=== PATIENT | female | born 1960 | race Caucasian/White ===

== ENCOUNTER 2022-10-19 11:01 | Outpatient (REF) | payer OTHER, SELFPAY ==
[2022-10-19 15:59] LABS: Alanine Aminotransferase 26 U/L (0-31); Albumin Level 4.1 g/dL (3.5-5.0); Alkaline Phosphatase 79 U/L (39-117); Anion Gap 13 (12-20); Aspartate Amino Transferase 22 U/L (5-31); Bilirubin Total 0.5 mg/dL (0.0-1.0); Blood Urea Nitrogen 10 mg/dL (9-16); Carbon Dioxide 26 mmol/L (22-29); Chloride 106 mmol/L (96-108); Cholesterol 212 mg/dL; Estimated Glomerular Filt Rate > 60; Glucose Random 85 mg/dL (60-115); HDL Cholesterol 41 mg/dL; LDL Cholesterol Calculated 150 mg/dl; Potassium 4.2 mmol/L (3.3-5.1); Sodium 141 mmol/L (135-145); Total Protein 7.5 g/dL (6.5-8.0); Triglycerides 106 mg/dL
[2022-10-19 16:50] LABS: Creatinine Urine 25.17 mg/dL; Microalbumin Urine < 5.0 mg/L
== END 2022-10-19 11:02 | disposition home or self-care (01) ==
LOC: HO.CHCLDS 11:01
PROVIDERS: Visit Provider Internal Medicine
DX: E11.9 Type 2 diabetes mellitus without complications (principal)
CPT/HCPCS: 36415; 80053; 80061; 82043

== ENCOUNTER 2022-11-10 08:44 | Outpatient (AMB) | payer OTHER, SELFPAY ==
--- NOTE | 2022-11-10 08:45 | MHC.OFFWIV ---
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 While walking her dog today she was attacked by a cat. The cat scratched her left leg. She does not know the cat belongs to. PFSH Social History Patient Tobacco Use Status: Never used Tobacco Physical Exam Vital Signs: Last Vital Signs Temp 98.5 F 11/10/22 08:46 Pulse 72 11/10/22 08:46 BP 138/76 11/10/22 08:46 Pulse Ox 98 11/10/22 08:46 Oxygen Delivery Method Room Air 11/10/22 08:46 BMI result Body Mass Index 34.7 Extrem Other: Left leg: Scratch echavarria over her left leg. No visible bleeding sites. Assessment & Plan Assessment & Plan (1) Cat scratch: Code(s): W55.03XA - Scratched by cat, initial encounter Plan: Cipro started. Patient is up-to-date on her tetanus. Coding Level of Care Code Est Pt Level 3 (74193) Diagnoses Cat scratch W55.03XA
[2022-11-10 08:46] VITALS: BP 138/76; PULSE 72; TEMP 36.9; O2SAT 98; BMI 34.7
== END 2022-11-10 09:23 | disposition home or self-care (01) ==
PROVIDERS: Visit Provider Internal Medicine
DX: S80.812A Abrasion, left lower leg, initial encounter (principal); W55.03XA Scratched by cat, initial encounter
CPT/HCPCS: 99213

== ENCOUNTER 2023-03-30 08:57 | Outpatient (REF) | payer OTHER, SELFPAY ==
[2023-03-30 15:15] LABS: Alanine Aminotransferase 28 U/L (0-31); Albumin Level 4.2 g/dL (3.5-5.0); Alkaline Phosphatase 86 U/L (39-117); Anion Gap 13 (12-20); Aspartate Amino Transferase 23 U/L (5-31); Bilirubin Total 0.6 mg/dL (0.0-1.0); Blood Urea Nitrogen 13 mg/dL (9-16); Calcium 9.5 mg/dL (8.4-10.2); Carbon Dioxide 27 mmol/L (22-29); Chloride 105 mmol/L (96-108); Cholesterol 150 mg/dL (<200); Estimated Glomerular Filt Rate > 60; Glucose Random 89 mg/dL (60-115); HDL Cholesterol 47 mg/dL (>40); LDL Cholesterol Calculated 86 mg/dL (<100); Potassium 4.2 mmol/L (3.3-5.1); Sodium 141 mmol/L (135-145); Total Protein 7.5 g/dL (6.5-8.0); Triglycerides 88 mg/dL (<150)
== END 2023-03-30 08:58 | disposition home or self-care (01) ==
LOC: HO.CHCLDS 08:57
PROVIDERS: Visit Provider Internal Medicine
DX: E78.2 Mixed hyperlipidemia (principal)
CPT/HCPCS: 36415; 80053; 80061

== ENCOUNTER 2023-08-09 09:13 | Outpatient (REF) | payer OTHER, SELFPAY ==
[2023-08-09 15:02] LABS: Estimated Average Glucose 137 mg/dL; Hemoglobin A1c % 6.4 % (<6.0)
[2023-08-09 15:03] LABS: Alanine Aminotransferase 16 U/L (0-31); Albumin Level 4.2 g/dL (3.5-5.0); Alkaline Phosphatase 67 U/L (39-117); Anion Gap 16 (12-20); Aspartate Amino Transferase 22 U/L (5-31); Bilirubin Total 0.5 mg/dL (0.0-1.0); Blood Urea Nitrogen 12 mg/dL (9-16); Calcium 9.8 mg/dL (8.4-10.2); Carbon Dioxide 26 mmol/L (22-29); Chloride 106 mmol/L (96-108); Cholesterol 247 mg/dL (<200); Estimated Glomerular Filt Rate > 60; Glucose Random 92 mg/dL (60-115); HDL Cholesterol 51 mg/dL (>40); LDL Cholesterol Calculated 174 mg/dL (<100); Potassium 4.6 mmol/L (3.3-5.1); Sodium 143 mmol/L (135-145); Total Protein 7.8 g/dL (6.5-8.0); Triglycerides 114 mg/dL (<150)
== END 2023-08-09 09:14 | disposition home or self-care (01) ==
LOC: HO.CHCLDS 09:13
PROVIDERS: Visit Provider Internal Medicine
DX: E11.9 Type 2 diabetes mellitus without complications (principal); E78.2 Mixed hyperlipidemia
CPT/HCPCS: 36415; 80053; 80061; 83036

== ENCOUNTER 2024-01-02 09:42 | Outpatient (REF) | payer OTHER, SELFPAY ==
[2024-01-02 15:01] LABS: Alanine Aminotransferase 17 U/L (0-31); Albumin Level 4.3 g/dL (3.5-5.0); Alkaline Phosphatase 66 U/L (39-117); Anion Gap 12 (12-20); Aspartate Amino Transferase 25 U/L (5-31); Bilirubin Total 0.5 mg/dL (0.0-1.0); Blood Urea Nitrogen 11 mg/dL (9-16); Calcium 9.7 mg/dL (8.4-10.2); Carbon Dioxide 27 mmol/L (22-29); Chloride 106 mmol/L (96-108); Cholesterol 273 mg/dL (<200); Estimated Glomerular Filt Rate > 60; Glucose Random 91 mg/dL (60-115); HDL Cholesterol 54 mg/dL (>40); LDL Cholesterol Calculated 198 mg/dL (<100); Potassium 4.4 mmol/L (3.3-5.1); Sodium 141 mmol/L (135-145); Total Protein 7.6 g/dL (6.5-8.0); Triglycerides 106 mg/dL (<150)
== END 2024-01-02 09:43 | disposition home or self-care (01) ==
LOC: HO.CHCLDS 09:42
PROVIDERS: Visit Provider Internal Medicine
DX: E78.2 Mixed hyperlipidemia (principal)
CPT/HCPCS: 36415; 80053; 80061

== ENCOUNTER 2024-10-14 10:04 | Outpatient (REF) | payer OTHER, SELFPAY ==
--- OUTSIDE RECORDS SUMMARY | 2024-10-14 10:38 | XMS_ITS | Encounter Summary ---
Author Organization [employer] Address [address] [facility] [address] [place] [address] Care Team Providers Care Dry Can Tender Name Role Phone Gerard Dsouza MD Primary Care Prov ider Reason for Visit * Reason Comments Med Refill Encounter Details Date Type Department Care Team ([facility] st Contact Info) Description 08/28/2023 Refill C [facility] [address] [place], [place] [phone] Gerard Dsouza MD [address] [place], [place] [phone] Social History Tobacco Use Types Packs/Day Years Used Date Smoking Tobacco: Never Smokeless Tobacco: Never Depression Answer Date Recorded Patient Health Questionnaire-9 Score 0 07/20/2022 Housing Stability Answer Date Recorded What is your housing situation today? I have andra hartley 12/27/[address] you li ve. Do you have problems with any of the following? None of the above 12/27/2022 Food Insecurity Answer Date Recorded Within the past 12 months, y ou worried that your food would run out before you got money to buy more: Never True 12/27/2022 Within the past 12 months,th e food you bought just didn't last and you didn't have enough money to get more: Never True Transportation Answer Date Recorded In the past 12 months, has l ack of transportation kept you from medical appts, meetings, work or from getting things needed for daily living? No 12/27/2022 Utilities Answer Date Recorded In the past 12 months, has t he electric, gas, oil or water company threatened to shut off services in your home? No 12/27/2022 Depression Answer Date Recorded Patient Health Questionnaire-2 Score 0 07/20/2022 Comments Unknown Sex and Gender Information Value Date Recorded Sex Assigned at Female 01/09/2022 10:20 AM EDT Legal Sex Female 10:20 AM EDT Gender Identity Female 07/20/2022 10:00 AM EDT Sexual Orientation Straight 07/20/2022 10 :00 AM EDT documented as of this encounter Plan of Treatment Not on file documented as of this encounter Visit Diagnoses Not on filedocumented in this encounter Additional Health Concerns Assessment Noted Time PHQ-9 Depression Total Score: 0 07/21/19 23 10:29 AM EDT documented as of this encounter Care Teams Dry Can Tender Relationship Specialty Start Date End Date Gerard Dsouza MD [address] [place] [id number] PCP - General Internal Medicine 07/21/19 documented as of this encounter
[2024-10-14 14:19] LABS: MANUAL DIFF FLAG NO
[2024-10-14 14:28] LABS: Hematocrit 42.8 % (37.0-47.0); Hemoglobin 13.7 g/dl (12.0-16.0); Imm Gran Abs Auto 0.02 X10*3/uL (0.00-0.03); Imm Gran Pct Auto 0.3 % (0.0-0.4); Lymphocytes Absolute Auto 1.8 X10*3/uL (1.2-4.9); Mean Corpuscular HGB Conc 32.0 g/dl (31.0-35.0); Mean Corpuscular Hemoglobin 28.5 pg (27.0-33.0); Mean Corpuscular Volume 89.2 fL (80.0-98.0); NRBC Abs Auto 0.000 X10*3/uL (0.0-0.012); NRBC Pct Auto 0.0 /100WBC (0.0-0.2); Platelet Count 323 X10*3/uL (160-400); Red Blood Count 4.80 X10*6/uL (4.20-5.50); White Blood Count 6.6 X10*3/uL (4.8-10.8)
[2024-10-14 14:47] LABS: Microalbum/Creatinine Ratio Ur 8.6 ug/mg cr (<30)
[2024-10-14 15:04] LABS: Alanine Aminotransferase 17 U/L (0-31); Albumin Level 4.5 g/dL (3.5-5.0); Alkaline Phosphatase 63 U/L (39-117); Anion Gap 12 (12-20); Aspartate Amino Transferase 27 U/L (5-31); Blood Urea Nitrogen 11 mg/dL (9-16); Calcium 9.0 mg/dL (8.4-10.2); Carbon Dioxide 27 mmol/L (22-29); Chloride 107 mmol/L (96-108); Cholesterol 258 mg/dL (<200); Estimated Glomerular Filt Rate 56; HDL Cholesterol 49 mg/dL (>40); Potassium 4.2 mmol/L (3.3-5.1); Sodium 142 mmol/L (135-145); Total Protein 7.4 g/dL (6.5-8.0); Triglycerides 110 mg/dL (<150)
== END 2024-10-14 10:05 | disposition home or self-care (01) ==
LOC: HO.CHCLDS 10:04
PROVIDERS: Visit Provider Internal Medicine
DX: E11.9 Type 2 diabetes mellitus without complications (principal)
CPT/HCPCS: 36415; 80053; 80061; 82043; 82570; 84443; 85025

== ENCOUNTER 2025-01-16 08:55 | Outpatient (REF) | payer OTHER, SELFPAY ==
--- OUTSIDE RECORDS SUMMARY | 2025-01-12 09:00 | XMS_ITS | Encounter Summary ---
Author Organization [employer] Address [address] [facility] 7 [place] [address] Care Team Providers Care Sewer Line Repairer Name Role Phone Gerard Dsouza MD Primary Care Prov ider Encounter Details Date Type Department Care Team ([facility] st Contact Info) Description 01/12/2025 9:00 AM EST Telemedicine [facility] [address] [place], [place] [phone] Gerard Dsouza MD [address] [place] [address] Type 2 diabetes mellitus without complication, without long-term current use of insulin (HCC) (Primary Dx); Primary hypertension Social History Tobacco Use Types Packs/Day Years Used Date Smoking Tobacco: Never Passive Smoke Exposure: Never Smokeless Tobacco: Never Depression Answer Date Recorded Patient Health Questionnaire-9 Score 0 01/12/2025 Patient Health Questionnaire-9 Score 0 01/12/2025 Last PHQ-9: Questionnaire Data Not on file 1 03/14/2024 Housing Stability Answer Date Recorded What is your housing situation today? I have andra hartley 01/12/[address] you li ve. Do you have problems with any of the following? None of the above 01/12/2025 Food Insecurity Answer Date Recorded Within the past 12 months, y ou worried that your food would run out before you got money to buy more: Never True 01/12/2025 Within the past 12 months,th e food you bought just didn't last and you didn't have enough money to get more: Never True 05/2024 Transportation Answer Date Recorded In the past 12 months, has l ack of transportation kept you from medical appts, meetings, work or from getting things needed for daily living? No 01/12/2025 Utilities Answer Date Recorded In the past 12 months, has t he electric, gas, oil or water company threatened to shut off services in your home? No 01/12/2025 Depression Answer Date Recorded Patient Health Questionnaire-2 Score 0 01/12/2025 Internet Access Answer Date Recorded Internet Access Q1 Yes 01/12/2025 Internet Access Q2 Not on file 01/12/2025 Comments No Sex and Gender Information Value Date Recorded Sex Assigned at Female 01/09/2022 10:20 AM EDT Legal Sex Female 10:20 AM EDT Gender Identity Female 07/20/2022 10:00 AM EDT Sexual Orientation Straight 07/20/2022 10 :00 AM EDT documented as of this encounter Last Filed Vital Signs Vital Sign Reading Time Taken Comments Blood Pressure 126/83 01/12/2025 9:34 AM EST Pulse - - Temperature - - Respiratory Rate - - Oxygen Saturation - - Inhaled Oxygen Concentration - - Weight - - Height - - Body Mass Index - - documented in this encounter Functional Status * Over the past 2 weeks, how often have you been bothered by any of the following problems? Question Answer Date of Assessment Author Patient Health Questionnaire-2 Score 0 05/2024 8:59 AM Jennifer Estrada MA * Little interest or pleasure in doing things Answer Date of Assessment Author Not at all 01/12/2025 8:59 AM Rosana Estrada MA * Feeling down, depressed, or hopeless Answer Date of Assessment Author Not at all 01/12/2025 8:59 AM Rosana Estrada MA * Trouble falling or staying asleep, or sleeping too much Answer Date of Assessment Author Not at all 01/12/2025 8:59 AM Rosana Estrada MA * Feeling tired or having little energy Answer Date of Assessment Author Not at all 01/12/2025 8:59 AM Rosana Estrada MA * Poor appetite or overeating Answer Date of Assessment Author Not at all 01/12/2025 8:59 AM Rosana Estrada MA * Feeling bad about yourself - or that you are a failure or have let yourself or your family down Answer Date of Assessment Author Not at all 01/12/2025 8:59 AM Rosana Estrada MA * Trouble concentrating on things, such as reading the newspaper or watching television Answer Date of Assessment Author Not at all 01/12/2025 8:59 AM Rosana Estrada MA * Moving or speaking so slowly that other people could have noticed? Or the opposite - being so fidgety or restless that you have been moving around a lot more than usual. Answer Date of Assessment Author Not at all 01/12/2025 8:59 AM Rosana Estrada MA * Thoughts that you would be better off or hurting yourself in some way Answer Date of Assessment Author Not at all 01/12/2025 8:59 AM Rosana Estrada MA * Patient Health Questionnaire-9 Score Answer Date of Assessment Author 0 01/12/2025 8:59 AM Rosana Estrada MA documented as of this encounter Progress Notes * Gerard Lackey MD - 01/12/2025 9:00 AM EST Subjective Patient ID: Vilma Barboza is a 65 y.o. female who presents for No chief complaint on file.. Diabetes She presents for her follow-up diabetic visit. She has type 2 diabetes mellitus. Pertinent negatives for diabetes include no fatigue, no foot paresthesias, no foot ulcerations, no polydipsia, no polyphagia and no polyuria. Review of Systems Constitutional: Negative for fatigue. Endocrine: Negative for polydipsia, polyphagia and polyuria. Objective Physical Exam Neurological: General: No focal deficit present. Mental Status: She is oriented to person, place, and time. Psychiatric: Mood and Affect: Mood normal. Behavior: Behavior normal. Assessment/Plan Problem List Items Addressed This Visit Type 2 diabetes mellitus without complication, without long-term current use of insulin (HCC) - Primary Will order new A1c, keep low carb/no sugar diet, follow up in 3 months Relevant Orders Hemoglobin A1c Primary hypertension Controlled, keep low sodium diet and exercise as tolerated, keep blood pressure log target <140/90, follow up in 4 months documented in this encounter Miscellaneous Notes * Assessment & Plan Note - Gerard Lackey MD - 01/12/2025 9:40 AM ESTAssociated Problem(s): Type 2 diabetes mellitus without complication, without long-term current useof insulin (HCC) Will order new A1c, keep low carb/no sugar diet, follow up in 3 months * Assessment & Plan Note - Gerard Lackey MD - 01/12/2025 9:39 AM ESTAssociated Problem(s): Primary hypertension Controlled, keep low sodium diet and exercise as tolerated, keep blood pressure log target <140/90, follow up in 4 months documented in this encounter Plan of Treatment Scheduled Orders Name Type Priority Associated Diagnoses Orde r Schedule Hemoglobin A1c Lab Routine Type 2 diabetes mellitus without complication, without long-term current use of insulin (HCC) Expected: 01/12/2025 (Approximate), Expires: 01/12/2026 documented as of this encounter Visit Diagnoses Diagnosis Type 2 diabetes mellitus without complication, without long-term current use of insulin (HCC)- Primary Primary hypertension Unspecified essential hypertension documented in this encounter Additional Health Concerns Assessment Noted Time PHQ-9 Depression Total Score: 0 01/13/20 25 8:59 AM EST documented as of this encounter Care Teams Sewer Line Repairer Relationship Specialty Start Date End Date Gerard Dsouza MD [address] [place] [id number] PCP - General Internal Medicine 07/21/19 documented as of this encounter
--- OUTSIDE RECORDS SUMMARY | 2025-01-16 09:48 | XMS_ITS | Encounter Summary ---
Author Organization [employer] Address [address] [facility] 7 [place] [address] Care Team Providers Care Sales Activity Manager Name Role Phone Gerard Dsouza MD Primary Care Prov ider Reason for Visit * Reason Comments Med Refill Encounter Details Date Type Department Care Team ([facility] st Contact Info) Description 08/28/2023 Refill [facility] MED [facility] PEDS [address] [place], [place] [phone] Gerard Dsouza MD [address] [place] [address] Social History Tobacco Use Types Packs/Day Years Used Date Smoking Tobacco: Never Smokeless Tobacco: Never Depression Answer Date Recorded Patient Health Questionnaire-9 Score 0 07/20/2022 Housing Stability Answer Date Recorded What is your housing situation today? I have andrakaylee hartley 12/27/[address] you [...] documented as of this encounter Care Teams Sales Activity Manager Relationship Specialty Start Date End Date Gerard Dsouza MD [address] [place] [phone] PCP - General Internal Medicine 07/21/19 documented as of this encounter
--- OUTSIDE RECORDS SUMMARY | 2025-01-16 09:49 | XMS_ITS | Encounter Summary ---
Author Organization [employer] Address [address] [facility] [address] [place] [address] Care Team Providers Care Interactive Designer Name Role Phone Gerard Dsouza MD Primary Care Prov ider Encounter Details Date Type Department Care Team (Latest Contact Info) Description 01/12/2025 Travel Social History Tobacco Use Types Packs/Day Years [...] AM EDT documented as of this encounter Functional Status * Over the [...] Estrada [place] documented as of this encounter Plan of Treatment Not on file documented as of this encounter Visit Diagnoses Not on filedocumented in this encounter Additional Health Concerns Assessment Noted Time PHQ-9 Depression Total Score: 0 01/13/20 25 8:59 AM EST documented as of this encounter Care Teams Interactive Designer Relationship Specialty Start Date End Date Gerard Dsouza MD [address] [place] [id number] PCP - General Internal Medicine 07/21/19 documented as of this encounter
--- OUTSIDE RECORDS SUMMARY | 2025-01-16 09:49 | XMS_ITS | Encounter Summary ---
Author Organization [email or web address] Address [address] [facility] [address] [place] [address] Care Team Providers Care Retort Cooler Name Role Phone Gerard Dsouza MD Primary Care Prov ider Encounter Details Date Type Department Care Team (Late st Contact Info) Description 04/07/2022 Telephone [facility] MED & PEDS [address] [place], [place] [phone] Gerard Dsouza MD [address] [place] [address] Social History Tobacco Use Types Packs/Day Years Used Date Smoking Tobacco: Never Assessed Comments Unknown Sex and Gender Information Value Date Recorded Sex Assigned at Female 01/09/2022 10:20 AM EDT Legal Sex Female 10:20 AM EDT Gender Identity Female 07/20/2022 10:00 AM EDT Sexual Orientation Straight 07/20/2022 10 :00 AM EDT documented as of this encounter Plan of Treatment Not on file documented as of this encounter Visit Diagnoses Not on filedocumented in this encounter Care Teams Retort Cooler Relationship Specialty Start Date End Date Gerard Dsouza MD [address] [place] [phone] PCP - General Internal Medicine 07/21/19 documented as of this encounter
--- OUTSIDE RECORDS SUMMARY | 2025-01-16 09:49 | XMS_ITS | Clinical Summary ---
Author Organization [employer] Address [address] [facility] [address] [place] [address] Care Team Providers Care Associate Team Physician Name Role Phone Gerard Dsouza MD Primary Care Prov ider Allergies No known active allergies Medications Blood Pressure kit 1 kit in the morning. 1 kit 08/23/2022 Active Active Problems Problem Noted Date Diagnosed Date Primary hypertension 01/22/2023 Assessment & Plan (01/12/2025 9:39 AM EST): Controlled, keep low sodium diet and exercise as tolerated, keep blood pressure log target <140/90, follow up in 4 months Assessment & Plan (10/14/2024 10:40 AM EDT): Uncontrolled during visit, she refers at home has remained stable, told to keep a bp log and bring it on next appoitnemtn, she has WCS Assessment & Plan (01/02/2024 9:22 AM EDT): Slightly elevated, she has wcs, at home she refers ranges between 120-130/70-80, told to continue low sodium diet and exercise s tolerated, follow up in 4 monts Assessment & Plan (07/04/2023 9:24 AM EDT): Has remained under control with diet and exercise, bp target <140/90, call back if above, will follow up in 6 months Assessment & Plan (04/06/2023 9:30 AM EST): Controlled, reinforced low sodium diet, bp target <140/90, will follow up in 3 months Assessment & Plan (03/30/2023 5:20 PM EST): Controlled, has maintained below 130/80, continue low sodium diet and exercise as tolerated, continue bp monitoring Assessment & Plan (01/22/2023 8:17 AM EST): Discussed importance of maintaining a adequate bp control, patient not interested in starting treatment for bp, will follow a low sodium diet and exercise, will follow up in 4 months Elevated BP without diagnosis of hypertension Assessment & Plan (08/23/2022 2:07 PM EDT): Reviewed with patient results, will provide a bp monitor, told target should be less than 130/80, she is losing weight exercising, eating healthier. Will schedule Nurse visit for bp check in 1 month Type 2 diabetes mellitus wit hout complication, without long-term current use of insulin 08/04/2022 Assessment & Plan (01/12/2025 9:40 AM EST): Will order new A1c, keep low carb/no sugar diet, follow up in 3 months Assessment & Plan (10/14/2024 10:41 AM EDT): Discussed results, encouraged to kp a low carb/no sugar diet,follow up in 6 months Assessment & Plan (01/02/2024 9:22 AM EDT): A1c 6.4%, she has lost over 30lbs since last year, she has been managing it with diet, will continue monitoring Assessment & Plan (07/04/2023 9:25 AM EDT): Off medications, following diet and exercise recommendations, refers today FBS was 96, encouraged to keep current lifestyle modification, told to get blood work done at the end of the month, if A1c within target can be monitored yearly Assessment & Plan (04/06/2023 9:31 AM EST): COntrolled, managed with diet, FBS ranges 75-115, will order new A1c for next visit Assessment & Plan (03/30/2023 5:17 PM EST): She has been managing it with diet, last A1c was 6.2%, will follow up in 04/2023 Assessment & Plan (01/22/2023 8:16 AM EST): Patient stopped taking metformin, she refers she prefers followin a low carb/no sugar diet, her A1c improved to 6.2%, will follow up in 4 months Assessment & Plan (08/23/2022 2:07 PM EDT): She is not interested in increasing dose, want to keep current one and following diet/exercises recommendations, will follow up in 2 months Assessment & Plan (08/04/2022 9:55 AM EDT): A1c 7.2%, patient will be started on metformin 500mg BID, reviewed diet, exercise reccomendations, watch for glucose <70, keep bp log and will follow up in 1 month Mixed hyperlipidemia 08/04/2022 Assessment & Plan (10/14/2024 10:41 AM EDT): New labs ordered told to keep a low cholesterol diet, follow up in 4-6 months Assessment & Plan (01/02/2024 9:23 AM EDT): She is not interested in starting statin therapy, new labs will be ordered, risk were discussed Assessment & Plan (07/04/2023 9:26 AM EDT): Patient stopped atorvastatin 3 weeks ago, refers was getting leg cramps, told to get blood work at the end of july for follow up. If within target can be monitored yearly Assessment & Plan (04/06/2023 9:36 AM EST): Much improved, ldl 88, will leave current therapy, follow up in 3 months, will decide on next visit if dose needs to be decreased Patient refused screening test (colonoscopy, mammogram and pap smear) risk were discussed Assessment & Plan (03/30/2023 5:18 PM EST): Reinforced importance of statin therapy, risk of not taking it as well, new labs for follow up will be ordered Assessment & Plan (01/22/2023 8:19 AM EST): Patient on atorvastatin 40mg, no side effects reported, continue current therapy, new labs will be ordered Assessment & Plan (08/23/2022 2:08 PM EDT): On atorvastatin 40mg no side effects reported, will follow up in 2 months Assessment & Plan (08/04/2022 9:56 AM EDT): LDL 200, will start on atorvastatin 40mg, risk vs benefits reviewed, side effects reviewed. Will monitor in 2 months Annual physical exam 07/20/2022 Assessment & Plan (07/20/2022 12:52 PM EDT): Examination was unremarkable, back pain could not be ellicited with straight leg raise test Due tdp/shingles shot, want to get only tdap shot today Routine labs ordered Chronic midline low back pain with left-sided sc iatica 07/20/2022 Assessment & Plan (07/20/2022 12:50 PM EDT): Not active currently, told to rest apply ice/heat pads, avoid heavy lifting, call back If pain is persistant Screening for colon cancer 07/20/2022 Assessment & Plan (07/20/2022 12:51 PM EDT): Refused, risk vs benefits were discussed, not interested in cologuard Encounter for screening mamm ogram for malignant neoplasm of breast 07/20/2022 Assessment & Plan (07/20/2022 12:51 PM EDT): Refused, risk vs benefit were discussed Screening for cervical cancer 07/20/2022 Assessment & Plan (01/02/2024 9:23 AM EDT): Refused pap smear risk were discussed Assessment & Plan (07/20/2022 12:51 PM EDT): Will refer for pap smear Encounters Date Type Department Care Team Description 01/12/2025 9:00 AM EST Telemedicine [facility] [address] [place] [address] Gerard Dsouza MD Type 2 diabetes mellitus without complication, without long-term current use of insulin (HCC) (Primary Dx); Primary hypertension 01/12/2025 Travel 10/16/2024 Results Follow-Up [facility] [address] [address] [place] [address] Gerard Dsouza MD POCT Glucose, POCT HGB A1C, CBC auto differential, Additional followed-up results: 4 from Last 3 Months Immunizations Immunization Administration Dates Next Due Tdap 07/20/2022 Social History Tobacco Use Types Packs/Day Years Used Date Smoking Tobacco: Never Passive Smoke Exposure: Never Smokeless Tobacco: Never Tobacco Cessation:Counseling Given: Not Answered Depression Answer Date Recorded Patient Health Questionnaire-9 Score 0 01/12/2025 Patient Health Questionnaire-9 Score 0 01/12/2025 Last PHQ-9: Questionnaire Data Not on file 1 03/14/2024 Housing Stability Answer Date Recorded What is your housing situation today? I have andra odilia 01/12/[address] you li [...] Orientation Straight 07/20/2022 10 :00 AM EDT Last Filed Vital Signs Vital Sign Reading Time Taken Comments Blood Pressure 126/83 01/12/2025 9:34 AM EST Pulse 82 10/14/2024 9:46 AM EDT Temperature 36.8 C (98.2 F) 10/14/2024 9:46 AM EDT Respiratory Rate 20 10/14/2024 9:46 AM EDT Oxygen Saturation 94% 01/02/2024 8:59 AM EDT Inhaled Oxygen Concentration - - Weight 102 kg (224 lb) 10/14/2024 9:46 AM EDT Height 170.2 cm (5' 7 ) 10/14/2024 9:46 AM EDT Body Mass Index 35.08 10/14/2024 9:46 AM EDT Plan of Treatment Health Maintenance Due Date Last Done Comments CT Colonography 1960 Colonoscopy 1960 Colorectal Cancer Screening 1960 FIT DNA/Cologuard 1960 FIT 1960 FOBT 1960 Sigmoidoscopy 1960 Pneumococcal Vaccine: 50+ Years (1 of 2 - PCV) 01/05/1979 Pap Smear 01/05/1981 Mammogram 2000 Zoster Vaccines (1 of 2) 01/05/2010 Cervical Cancer Screening 05/30/2021 HPV/Cotest 05/30/2021 05/30/2016 COVID-19 Vaccine ( season) 2024 07/18/2020, 06/27/2020 Influenza Vaccine (#1) 2024 Diabetes: Foot Exam 01/01/2025 01/02/2024, 01/02/2024, 01/02/2024, Additional history exists Tobacco Screening 01/01/2025 01/02/2024 Eye Exam 03/26/2025 Diabetes: Hemoglobin A1C 04/16/2025 025, 01/02/2024, 08/09/2023, Additional history exists Diabetes: Urine Protein Screening 10/14/2025 10/14/2024, 10/19/2022 Lipid Panel 10/14/2025 10/14/2024, 12/11, 08/09/2023, Additional history exists Alcohol/Substance Use Screening 01/12/2026 01/12/2025 Depression Screening 01/12/2026 01/12/2025, 01/13/20 25 SDOH Screening 01/12/2026 01/12/2025 DTaP/Tdap/Td Vaccines (2 - Td or Tdap) 07/20/2032 07/20/2022 RSV Patients and Patients Aged 60 years or older (1 - 1-dose 75+ series) 01/05/2035 Hepatitis C Screening Completed 07/20/2022 HIB Vaccines Aged Out No longer eligi ble based on patient's age to complete this topic HPV Vaccines Aged Out No longer eligi ble based on patient's age to complete this topic Hepatitis A Vaccines Aged Out No long er eligible based on patient's age to complete this topic Hepatitis B Vaccines Aged Out No long er eligible based on patient's age to complete this topic IPV Vaccines Aged Out No longer eligi ble based on patient's age to complete this topic Meningococcal B Vaccine Aged Out No l onger eligible based on patient's age to complete this topic Meningococcal Vaccine Aged Out No hawk zehra eligible based on patient's age to complete this topic RSV under 20 months Aged Out No longe r eligible based on patient's age to complete this topic Rotavirus Vaccines Aged Out No longer eligible based on patient's age to complete this topic Procedures Procedure Name Priority Date/Time Associated Diagnosis Comments ALBUMIN, RANDOM URINE W/CREATININE Routine 10/14/2024 10:10 AM EDT Type 2 diabetes mellitus without complication, without long-term current use of insulin ([facility]) LIPID PANEL, STANDARD Routine 10/14/2024 10:05 AM EDT Type 2 diabetes mellitus without complication, without long-term current use of insulin ([facility]) POCT GLYCATED HEMOGLOBIN, TOTAL Routine 10/14/2024 9:48 AM EDT Type 2 diabetes mellitus without complication, without long-term current use of insulin (CMS/HCC) HEPATITIS C AB W/REFL TO HCV RNA, QN, PCR Routine 07/20/2022 11:33 AM EDT Annual physical exam [facility] HISTORICAL HPV MRNA E6/E7 Routine 05/30/2016 11:50 AM EDT from Last 3 Months or Most Recently Relevant to Health Maintenance Results * Albumin, Random Urine W/Creatinine (10/14/2024 10:10 AM EDT) Creatinine, Urine 231.95 mg/dL [facility] Microalbumin Urine 20.0 mg/L [facility] Microalbum Creatinine Ratio Ur 8.6 <30 ug/mg cr [facility] Comment:Albumin/Creatinine R atio Reference Ranges: Normal: < 30 ug/mg creatinine Microalbuminuria: 30 - 300 ug/mg creatinineClinical Albuminuria: > 300 ug/mg creatinine Urine (Urine, Random) 10/14/2024 10:10 AM EDT 10/14/2024 2:06 PM EDT us Gerard Lackey MD LAB URINE ORDERABL ES Final Result [facility] [address] [place] [address] [phone] * (ABNORMAL) Lipid Panel, Standard (10/14/2024 10:05 AM EDT) Triglycerides 110 <150 mg/dL [facility] Comment:Desirable Triglyceri de: less than 150 mg/dLBorderline High Triglyceride 150-199 mg/dLHigh Triglyceride: 200-499 mg/dLVery High Triglyceride: greater than or equal to 5OO mg/dL Cholesterol 258(H) <200 mg/dL [facility] Comment:Desirable Cholestero l: less than 200 mg/dLBorderline High Cholesterol: 200-239 mg/dLHigh Cholesterol: greater than 239 mg/dL LDL Cholesterol Calculated 187(H) <100 mg/dL [facility] Comment:Desirable LDL: less than 100 mg/dLNear Optimal/Above Optimal LDL: 110- 129 mg/dLBorderline High LDL: 130-159 mg/dLHigh LDL: 160-189 mg/dLVery High LDL: greater than or equal to 190 mg/dL HDL Cholesterol 49 >40 mg/dL [facility] Comment:Desirable HDL: great er than 40 mg/dL Note: This HDL assay may give artificially low results in patients with liver disease. Blood Venous blood specimen / Unknown 10/14/2024 10:05 AM EDT 10/14/2024 2:13 PM EDT Gerard Lackey MD LAB BLOOD ORDERABL ES Final Result [facility] [address] [place] [phone] * (ABNORMAL) POCT HGB A1C (10/14/2024 9:48 AM EDT) Hemoglobin A1C 6.6(A) 4.0 - 5.7 % QC Media Lot # [id number] Lot# Expiration Date Blood 10/14/2024 9:48 AM EDT Gerard Lackey MD POINT OF CARE TEST ENTER/EDIT ORDERABLES Final Result * Hepatitis C Antibody with Reflex to HCV, RNA, Quantitative, Real-Time PCR (07/20/2022 11:33 AM EDT) Hepatitis C Antibody NON-REACT JULIO NON-REACT JULIO [facility] [employer] Index 0.08 <1.00 [facility] Comment: HCV antibody was non-reactive. There is no laboratory evidence of HCV infection. In most cases, no further action is required. However, if recent HCV exposure is suspected, a test for HCV RNA (test code 44070) is suggested. For additional information please refer to http://IguanaFix.OSSIANIX/faq/UFW06v0 (This link is being provided for informational/ educational purposes only.) Blood Venous blood specimen / Unknown 07/20/2022 11:33 AM EDT 07/20/2022 11:33 AM EDT Narrative [facility] - 07/24/2022 11:06 PM EDT FASTING:NO FASTING: NO us Gerard Lackey MD LAB BLOOD ORDERABL ES Final Result [facility] [address], [place] [address] [facility] [address] [place] [phone] * HPV mRNA E6/E7 (05/30/2016 11:50 AM EDT) Pathologist [facility] HPV mRNA E6/E7 Not Detected NOT DETECTED [facility] Comment: This test was performed using the APTIMA(R) HPV Assay ([employer] This assay detects E6/E7 viral messenger RNA (mRNA) from 14 high-risk HPV types (16,18,31,33,35,39,45,51, 52,56,58,59,66,68). For additional information please refer to: http://IguanaFix.OSSIANIX/faq/SQC735u4 (This link is being provided for informational/ educational purposes only.) Test Performed by [facility], [facility], [address] [place] [address] Edinson Dillard M.D., Ph.D., Director of Laboratories , [place] [phone] Please note: Effective 11/22/2015, HPV testing will be performed using [employer]'s APTIMA test which targets mRNA. Detecting mRNA instead of DNA, as in older methods, offers significant improvements in specificity. 05/30/2016 11:5 0 AM EDT Majo Rizzardini CNM HISTORICAL/NON ORDERABLE LABS Final Result [facility] [address] from Last 3 Months or Most Recently Relevant to Health Maintenance Insurance [facility] [employer] Care Teams Associate Team Physician Relationship Specialty Start Date End Date Gerard Dsouza MD [address] [place] [address] [phone] PCP - General Internal Medicine 07/21/19
--- OUTSIDE RECORDS SUMMARY | 2025-01-16 09:49 | XMS_ITS | Encounter Summary ---
Author Organization [employer] Address [address] [place] [id number] Care Team Providers Care Top Knitter Name Role Phone Gerard Dsouza MD Primary Care Prov ider Reason for Visit * Reason Onset Date Comments Medication Question 08/04/2022 Encounter Details Date Type Department Care Team ([facility] st Contact Info) Description 08/04/2022 Telephone [facility] [address] [place] [address] Gerard Dsouza MD [address] [place] [address] Medication Question Social History Tobacco Use Types Packs/Day Years Used Date Smoking Tobacco: Never Smokeless Tobacco: Never Depression Answer Date Recorded Patient Health Questionnaire-9 Score 0 07/20/2022 Depression Answer Date Recorded Patient Health Questionnaire-2 Score 0 07/20/2022 Comments Unknown Sex and Gender Information Value Date Recorded Sex Assigned at Female 01/09/2022 10:20 AM EDT Legal Sex Female 10:20 AM EDT Gender Identity Female 07/20/2022 10:00 AM EDT Sexual Orientation Straight 07/20/2022 10 :00 AM EDT COVID-19 Exposure Response Date Recorded In the last 10 days, have yo u been in contact with someone who was confirmed or suspected to have Coronavirus/COVID-19? No / Unsure 07/20/2022 9:59 AM EDT documented as of this encounter Miscellaneous Notes * Telephone Encounter - Dianne Gill RN - 08/04/2022 11:26 AM EDT Please review message below and advise. Will need updated script sent to pharmacy. Thank you. * Telephone Encounter - Yonas Chappellos - 08/04/2022 11:08 AM EDT [facility] requesting the frequency on [employer] LITE test strip. Please contact [facility] at [phone] documented in this encounter Plan of Treatment Not on file documented as of this encounter Visit Diagnoses Not on filedocumented in this encounter Additional Health Concerns Assessment Noted Time PHQ-9 Depression Total Score: 0 07/21/19 23 10:29 AM EDT documented as of this encounter Care Teams Top Knitter Relationship Specialty Start Date End Date DiopGerard Hickey MD [address] [place] [phone] PCP - General Internal Medicine 07/21/19 documented as of this encounter
== END 2025-01-16 08:56 | disposition home or self-care (01) ==
LOC: HO.CHCLDS 08:55
PROVIDERS: Visit Provider Internal Medicine
DX: E11.9 Type 2 diabetes mellitus without complications (principal)
CPT/HCPCS: 36415; 83036